=== PATIENT | female | born 1965 | race Caucasian/White ===

== ENCOUNTER 2019-08-26 10:32 | Emergency (ER) | payer OTHER ==
[~2019-08-26] VITALS: Ht 167.6 cm; Wt 100.7 kg
[2019-08-26 11:29] LABS: Source, Urine Catheter
[2019-08-26] MEDS ORDERED: AMLO5 PO (11:31)
[2019-08-26] MEDS ORDERED: PAPAYA ENZYME1 EACH PO (11:31)
[2019-08-26] MEDS ORDERED: ZYRTEC10 M2 PO (11:31)
[2019-08-26] MEDS ORDERED: Prinivil10 MG PO (11:31)
[2019-08-26] MEDS ORDERED: MULTI-VITAMIN1 EAC2 PO (11:32)
[2019-08-26] MEDS ORDERED: Phenytoin Sodi100 MG PO (11:32)
[2019-08-26] MEDS ORDERED: DOCU100 PO (11:32)
[2019-08-26] MEDS ORDERED: Milk Of Ma400 MG/5 M PO (11:33)
[2019-08-26] MEDS ORDERED: COENZYME Q10100 MG PO (11:33)
[2019-08-26] MEDS ORDERED: ONDA4 PO (11:34)
[2019-08-26] MEDS ORDERED: Flonase 0.05% N16 GM (11:34)
[2019-08-26 11:36] LABS: BASOPHILS ABSOLUTE AUTO 0.02 K/mm3 (0.00-0.23); BASOPHILS PERCENT AUTO 0 % (0-2); EOSINOPHILS ABSOLUTE AUTO 0.16 K/mm3 (0.00-0.68); EOSINOPHILS PERCENT AUTO 2 % (0-6); Hematocrit 42.3 % (33.0-51.0); Hemoglobin 13.6 g/dL (11.5-16.0); IMMATURE GRAN ABSOLUTE AUTO 0.05 K/mm3 (0.00-0.10); IMMATURE GRAN PERCENT AUTO 1 % (0-1); LYMPHOCYTES ABSOLUTE AUTO 2.06 K/mm3 (0.84-5.20); LYMPHOCYTES PERCENT AUTO 25 % (21-46); MONOCYTES ABSOLUTE AUTO 0.55 K/mm3 (0.16-1.47); MONOCYTES PERCENT AUTO 7 % (4-13); Mean Corpuscular HGB 28.8 pg (26.0-34.0); Mean Corpuscular HGB Conc 32.2 g/dL (31.5-36.5); Mean Corpuscular Volume 89 fL (80-100); Mean Platelet Volume 9.9 fL (9.1-12.4); NEUTROPHILS ABSOLUTE AUTO 5.48 K/mm3 (1.96-9.15); NEUTROPHILS PERCENT AUTO 66 % (41-73); Platelet Count 216 K/mm3 (150-400); RDW Coefficient Variation 13.3 % (11.7-14.2); RDW Standard Deviation 43.4 fL (35.1-46.3); Red Blood Cell Count 4.73 M/mm3 (3.80-5.20); White Blood Cell Count 8.32 K/mm3 (4.00-11.30)
[2019-08-26 11:40] LABS: Alanine Aminotransfer (ALT/SGP 43 U/L (12-78); Albumin, Blood 3.5 g/dL (3.4-5.0); Albumin/Globulin Ratio 0.9 (0.8-1.8); Alk Phos 104 U/L (50-136); Anion Gap 6 mmol/L (6-16); Aspartate Aminotrans (AST/SGOT 15 U/L (12-37); Bilirubin, Total 0.2 mg/dL (0.1-1.0); Blood Urea Nitrogen 10 mg/dL (8-24); Bun/Creatinine Ratio 18.2 (12.0-20.0); CO2, Blood 26 mmol/L (21-32); Calcium, Blood 8.8 mg/dL (8.5-10.1); Chloride, Blood 107 mmol/L (98-108); Creatinine, Blood 0.55 mg/dL (0.40-1.00); Globulin, Blood 3.8 g/dL (2.2-4.0); Glomerular Filtration Rate >60 (60-); Glucose, Blood 91 mg/dL (70-99); Potassium, Blood 4.3 mmol/L (3.5-5.5); Sodium, Blood 139 mmol/L (136-145); Total Protein, Blood 7.3 g/dL (6.4-8.2)
[2019-08-26 11:43] LABS: Dilantin (Phenytoin), Total 14.7 ug/mL (10.0-20.0)
[2019-08-26 12:00] LABS: Bilirubin, Urine Neg (Neg); Blood, Urine Neg (Neg); Glucose Qualitative, Urine Neg (Neg); Ketones, Urine Neg (Neg); Leukocyte Esterase, Urine Neg (Neg); Nitrite, Urine Neg (Neg); Protein, Urine Neg (Neg); Urobilinogen, Urine NORM (Normal)
[2019-08-26 12:11] LABS: Appearance, Urine Clear (Clear); Color, Urine Yellow (P-Yellow)
[2019-09-03] MEDS ORDERED: FLUC150A PO (16:27)
[2019-09-03] MEDS ORDERED: CEPH500 PO (16:27)
== END 2019-08-26 15:58 | disposition home or self-care (01) ==
LOC: ER 10:32
PROVIDERS: Emergency Medicine
DX: R53.1 Weakness (principal); R56.9 Unspecified convulsions; Z88.6 Allergy status to analgesic agent; Z79.899 Other long term (current) drug therapy
CPT/HCPCS: 51701; 70450; 80053; 80185; 81003; 85025; 93005; 93010; 99285-25